=== PATIENT | male | born 1955 | race Caucasian/White ===

== ENCOUNTER 2022-07-01 12:40 | Observation (INO) ==
[2022-07-01] MEDS ORDERED: methylPREDNISolone SOD SUC 125 MG/2 ML VIAL IV STA (12:56)
[2022-07-01] MEDS ORDERED: FAMOTIDINE 20 MG/2 ML VIAL IV STA (12:56)
[2022-07-01] MEDS ORDERED: SODIUM CHLORIDE 0.9% 1,000 ML IV STA (12:56)
[2022-07-01] MEDS ORDERED: diphenhydrAMINE 50 MG/1 ML VIAL IV STA (12:56)
[2022-07-01 13:22] LABS: Basophils % 0.3 % (0.0-0.8); Eosinophils # 0.2 10*3/uL (0.0-0.87); Eosinophils % 2.4 % (0.00-10.9); Hematocrit 41.5 VOL% (42.0-52.0); Hemoglobin 14.1 GM/DL (14.0-18.0); Immature Granulocytes % 0.5 %; Immature Granulocytes Absolute 0.04 #; Lymphocytes # 0.6 10*3/uL (1.4-4.0); Lymphocytes % 8.1 % (21.2-54.2); Mean Platelet Volume 9.6 FL (9.6-12.0); Monocytes # 0.3 10*3/uL (0.11-0.8); Monocytes % 3.8 % (1.7-12.7); Neutrophils % 84.9 % (38.7-73.9); Platelet Count 259 T/CUMM (130-400); Red Blood Count 4.28 MC/CUMM (3.8-5.5); Red Cell Distribution Width 13.2 % (9.3-17.3); White Blood Count 7.9 T/CUMM (4-12)
[2022-07-01 13:33] LABS: PT Patient Result 10.8 SECS (10.1-12.1); Partial Thromboplastin Time 31.2 SECS (23.7-32.9)
[2022-07-01] MEDS ORDERED: ONDANSETRON 4 MG/2 ML VIAL IV PRN (13:48)
[2022-07-01] MEDS ORDERED: ALUMINUM/MAGNES/SIMETH MAX STR 30 ML UDCUP PO PRN (13:48)
[2022-07-01] MEDS ORDERED: PROMETHAZINE 25 MG TABLET PO PRN (13:48)
[2022-07-01] MEDS ORDERED: DOCUSATE SODIUM 100 MG CAPSULE PO PRN (13:48)
[2022-07-01] MEDS ORDERED: ACETAMINOPHEN 325 MG TABLET PO PRN (13:48)
[2022-07-01] MEDS ORDERED: guaiFENesin/DM ER 600-30 MG TABLET PO PRN (13:48)
[2022-07-01] MEDS ORDERED: NICOTINE 21 MG/24 HR PATCH TRANSDERM PRN (13:48)
[2022-07-01] MEDS ORDERED: diphenhydrAMINE CAP 25 MG CAPSULE PO PRN (13:48)
[2022-07-01 13:54] LABS: Albumin 3.7 G/DL (3.4-5.0); Bilirubin,Total 0.6 MG/DL (0.20-1.00); Calcium 8.9 MG/DL (8.5-10.1); Osmolality,Calculated 277.7 MOS/KG (273-304); Potassium 4.6 MMOL/L (3.5-5.1); Total Protein 7.2 G/DL (6.4-8.2)
[2022-07-01] MEDS ORDERED: SODIUM CHLORIDE 0.9% 1,000 ML IV SCH (14:30)
[2022-07-01] MEDS ORDERED: ALBUTEROL/IPRATROPIUM 3 ML NEB RESP TX PRN (14:47)
[2022-07-01] MEDS: FAMOTIDINE 20 MG/2 ML VIAL IV SCH (16:11)
[2022-07-01 18:36] LABS: Glucose,Urine (UA) Negative (Negative); Ketones,Urine Trace mg/dL (Negative); Nitrite,Urine Negative (Negative); Protein,Urine >=300 mg/dL (Negative); Urine Appearance Cloudy (Clear); Urine Color Dark yellow (Yellow); Urine Specific Gravity 1.025 (1.001-1.035)
[2022-07-01 18:37] LABS: Bilirubin,Urine Small mg/dL (Negative); Blood, Urine Trace mg/dL (Negative); Urine Urobilinogen 0.2 eU/dL (<2.0)
[2022-07-01 18:41] LABS: Bacteria,Urine Occasional /HPF (Few); Hyaline Casts,Urine 53 /LPF (0-3); Mucus,Urine Many /LPF (Occasional); RBC,Urine 4 /HPF (0-4)
[2022-07-01] MEDS ORDERED: ATORVASTATIN 80 MG TABLET PO SCH (19:00)
[2022-07-01] MEDS: diphenhydrAMINE CAP 25 MG CAPSULE PO SCH (19:23)
[2022-07-01] MEDS ORDERED: RANOLAZINE 500 MG TABLET PO SCH (21:00)
[2022-07-01] MEDS ORDERED: ENOXAPARIN 40 MG/0.4 ML SYRINGE SUBCUT SCH (21:00)
[2022-07-01] MEDS ORDERED: gemfibroziL 600 MG TABLET PO SCH (21:00)
[2022-07-01] MEDS: methylPREDNISolone SOD SUC 40 MG/1 ML VIAL IV SCH (21:09)
[2022-07-02] MEDS: diphenhydrAMINE CAP 25 MG CAPSULE PO SCH (01:31)
[2022-07-02] MEDS: FAMOTIDINE 20 MG/2 ML VIAL IV SCH (02:45)
[2022-07-02] MEDS: methylPREDNISolone SOD SUC 40 MG/1 ML VIAL IV SCH (02:46)
[2022-07-02] MEDS: NITROGLYCERIN SL 0.4 MG TABLET SL PRN ×2 (03:14→03:19)
[2022-07-02 03:36] VITALS: BP 160/86
[2022-07-02] MEDS: MORPHINE 2 MG/1 ML SYRINGE IV PRN ×2 (04:50→07:25)
[2022-07-02] MEDS: hydrALAZINE 20 MG/1 ML VIAL IV PRN ×2 (04:54→07:17)
[2022-07-02] MEDS ORDERED: NITROGLYCERIN DRIP 50 MG/250 ML BOTTLE IV PRN (05:08)
[2022-07-02] MEDS ORDERED: LABETALOL 20 MG/4 ML SYRINGE IV ONE (05:09)
[2022-07-02 05:30] LABS: Hematocrit 37.7 VOL% (42.0-52.0); Hemoglobin 12.8 GM/DL (14.0-18.0); Immature Granulocytes % 0.5 %; Immature Granulocytes Absolute 0.04 #; Lymphocytes # 0.8 10*3/uL (1.4-4.0); Lymphocytes % 10.2 % (21.2-54.2); Mean Corpuscular Volume 98.2 FL (87-102); Mean Platelet Volume 9.8 FL (9.6-12.0); Monocytes # 0.2 10*3/uL (0.11-0.8); Monocytes % 1.9 % (1.7-12.7); Neutrophils % 87.4 % (38.7-73.9); Platelet Count 242 T/CUMM (130-400); Red Blood Count 3.84 MC/CUMM (3.8-5.5); Red Cell Distribution Width 13.2 % (9.3-17.3); White Blood Count 8.1 T/CUMM (4-12)
[2022-07-02 05:45] LABS: Alanine Aminotransferase 23 U/L (16-61); Albumin 3.5 G/DL (3.4-5.0); Alkaline Phosphatase 71 U/L (45-117); Aspartate Amino Transferase 13 U/L (0-37); Bilirubin,Total < 0.39 MG/DL (0.20-1.00); Blood Urea Nitrogen 31 MG/DL (7-18); Calcium 8.9 MG/DL (8.5-10.1); Carbon Dioxide 20 MMOL/L (21-32); Chloride 110 MMOL/L (98-107); Glucose 226 MG/DL (74-106); Osmolality,Calculated 292.4 MOS/KG (273-304); Sodium 140 MMOL/L (136-145); Total Protein 7.5 G/DL (6.4-8.2)
[2022-07-02] MEDS ORDERED: HEPARIN DRIP 25,000 UNITS/500 ML PREMIX IV SCH (05:45)
[2022-07-02] MEDS ORDERED: METOPROLOL TARTRATE 5 MG/5 ML VIAL IV ONE ×3 (06:15→07:49)
[2022-07-02] MEDS ORDERED: DIPHENOXYLATE/ATROPINE 2.5-0.025 MG TABLET PO PRN (06:20)
[2022-07-02 06:21] LABS: High Sensitive Troponin I* 15.3 ng/L (0-78)
[2022-07-02] MEDS ORDERED: GLUCAGON 1 MG VIAL IM PRN (06:28)
[2022-07-02 06:31] LABS: INR 1.2; PT Patient Result 12.8 SECS (10.1-12.1); Partial Thromboplastin Time 32.7 SECS (23.7-32.9)
[2022-07-02] MEDS ORDERED: DEXTROSE 10% 250 ML BAG IV PRN (06:34)
[2022-07-02] MEDS ORDERED: NITROPRUSSIDE 50 MG/2 ML VIAL ONE (07:29)
[2022-07-02] MEDS ORDERED: hydrALAZINE 25 MG TABLET PO SCH (07:30)
[2022-07-02] MEDS ORDERED: ASPIRIN EC 81 MG TABLET PO SCH (07:30)
[2022-07-02] MEDS ORDERED: INSULIN REGULAR 100 UNIT/ML SUBCUT SCH (07:30)
[2022-07-02] MEDS ORDERED: METOPROLOL TARTRATE 25 MG TABLET PO SCH (07:30)
[2022-07-02] MEDS ORDERED: ISOSORBIDE MONONITRATE 60 MG TABLET PO SCH (07:30)
[2022-07-02] MEDS ORDERED: NITROPRUSSIDE 100 MG in DEXTROSE 5% 246 ML IV PRN (07:51)
[2022-07-02] MEDS ORDERED: MORPHINE 2 MG/1 ML SYRINGE IV ONE (08:45)
[2022-07-02] MEDS ORDERED: MORPHINE 2 MG/1 ML SYRINGE IV PRN (08:49)
[2022-07-02] MEDS ORDERED: CALCIUM (CARBONATE)/VITAMIN D 600 MG-400 UNIT TABLET PO SCH (09:00)
[2022-07-02] MEDS ORDERED: allopurinoL 300 MG TABLET PO SCH (09:00)
[2022-07-02] MEDS ORDERED: MULTIVITAMIN (CENTRUM) TABLET PO SCH (09:00)
[2022-07-02] MEDS ORDERED: predniSONE 20 MG TABLET PO SCH (09:00)
[2022-07-02] MEDS ORDERED: EZETIMIBE 10 MG TABLET PO SCH (09:00)
[2022-07-02] MEDS ORDERED: PANTOPRAZOLE 40 MG TABLET PO SCH (09:00)
[2022-07-02] MEDS ORDERED: NON-FORMULARY MEDICATION (Esomeprazole Magnesium [Nexium] 40 mg Capsule,Delayed Release(Dr PO SCH (09:00)
[2022-07-02] MEDS ORDERED: LORATADINE 10 MG TABLET PO SCH (09:00)
== END 2022-07-02 09:53 | disposition hospice, home (50) ==
LOC: N.ED 12:40 → N.EDINP 12:40 → N.TELES 15:16 → N.ICU 07-02 05:22
PROVIDERS: ADMIT Internal Medicine Cardiovascular Disease; ATTEND Internal Medicine Cardiovascular Disease